=== PATIENT | male | born 1980 | race Caucasian/White ===

== ENCOUNTER 2022-04-10 06:55 | Outpatient (REF) | payer OTHER, SELFPAY ==
[2022-04-10 11:43] LABS: Alanine Aminotransferase 30 U/L (0-40); Anion Gap 12 (12-20); Aspartate Amino Transferase 20 U/L (5-37); Blood Urea Nitrogen 16 mg/dL (9-16); Calcium 9.5 mg/dL (8.4-10.2); Carbon Dioxide 29 mmol/L (22-29); Chloride 103 mmol/L (96-108); Cholesterol 220 mg/dL; Estimated Glomerular Filt Rate > 60; Glucose Fasting 99 mg/dL (60-99); HDL Cholesterol 51 mg/dL; LDL Cholesterol Calculated 151 mg/dl; Potassium 4.6 mmol/L (3.3-5.1); Sodium 139 mmol/L (135-145); Triglycerides 91 mg/dL
== END 2022-04-10 06:56 | disposition home or self-care (01) ==
LOC: HO.HMGCLDS 06:55
PROVIDERS: PCP Internal Medicine; Visit Provider Internal Medicine
DX: Z00.01 Encounter for general adult medical examination with abnormal findings (principal); E78.2 Mixed hyperlipidemia
CPT/HCPCS: 36415; 80048; 80061; 84450; 84460

== ENCOUNTER 2023-04-06 12:13 | Outpatient (AMB) | payer OTHER, SELFPAY ==
--- NOTE | 2023-04-06 13:20 | A.OFFPC_ITS ---
Vital Signs 04/06/23 13:21 04/06/23 13:42 Height 6 ft 1 in Weight 243 lb 2 oz BMI 32.1 BP 142/78 H 120/70 Blood Pressure Location Lt brachial Lt brachial Position Sitting Sitting Pulse 74 Pulse Source Pulse Oximeter Pulse Oximetry (%) 98 Oxygen Delivery Method Room Air Intake Visit Reasons: Annual Physical Intake Note: Pt is here for his Annual PE Allergies naproxen Adverse Reaction (Unknown, Verified 04/06/23 13:40) GI upset Motrin Adverse Reaction (Unknown, Uncoded 04/06/23 13:40) GI upset Medication List - Last Reconciled 04/06/23 by Eugenia Becerra MD No Known Home Meds Tobacco use date assessed: 04/06/23 Dental Screening Dental Screen Date: 04/06/23 Did you have a dental visit in the last 12 months?: Yes Did you have a dental problem in the last 6 months where you did not have access to dental care?: No Was dental information given to patient?: Patient has dentist HPI Annual Physical HPI Details 32-year-old male with hyperlipidemia, he re today for his physical exam. He has been feeling well, except for occasional heartburn symptoms, usually food related... PFSH Medical History Heartburn Right hamstring injury Mixed dyslipidemia Ingrown toenail of right foot Surgical History H/O vasectomy History of arthroscopy of knee Family History Father Diabetes mellitus History of myocardial infarction Hypertension Mother Melanoma Stacy's disease Brother Substance use disorder Maternal Aunt No problems noted. Maternal Uncle Substance use disorder Social History Housing: House Patient Tobacco Use Status: Former Tobacco user Years Smoked: 8 yrs e-Cigarette/Vaping Use: Never Used Second Hand Smoke Exposure: No service: Yes Current occupational status: employed Cognitive needs: No Hearing needs: No Vision needs: Yes Questionnaire PHQ-9 Over the last 2 weeks, how often have you been bothered by any of the following problems? 1. Little interest or pleasure in doing things: not at all 2. Feeling down, depressed, or hopeless: several days 3. Trouble falling or staying asleep, or sleeping too much: not at all 4. Feeling tired or having little energy: several days 5. Poor appetite or overeating: not at all 6. Feeling bad about yourself - or that you are a failure or have let yourself or your family down: not at all 7. Trouble concentrating on things, such as reading the newspaper or watching television: not at all 8. Moving or speaking so slowly that other people could have noticed. Or the opposite - being so fidgety or restless that you have been moving around a lot more than usual: not at all 9. Thoughts that you would be better off or of hurting yourself in some way: not at all Total score: 2 Depression Screening Interpretation: Negative Depression Screening Done: Yes 57033 - PHQ-9 Billing: Yes Source: Developed by Drs. Darron Kapadia, Fariha Hamilton, Landon Boggs and colleagues, with an educational liane from [employer]. Thrive Questionnaire Date Thrive assessed: 04/06/23 I am a: Patient What is your living situation today?: I have a steady place to live Within the past 12 months, did the food you bought not last and you didn't have the money to get more?: Never true Within the past 12 months, did you worry whether your food would run out before you got money to buy more?: Never true Do you have trouble paying for medicines?: No Do you have trouble getting transportation to medical appointments?: No Do you have trouble paying your heating and electricity bill?: No Do you have trouble taking care of your child, family member or friend?: No Do you have trouble with day-to-day activities such as bathing, preparing meals, shopping, managing finances, etc.?: No Are you currently unemployed and looking for a job?: No Are you interested in more education?: Yes AUDIT C Alcohol Use Questionnaire (AUDIT-C) 1. How often do you have a drink containing alcohol?: 2-3 times a week 2. How many drinks containing alcohol do you have on a typical day when you are drinking?: 3 or 4 3. How often do you have six or more drinks on one occasion?: Never Total Score: 4 JOSE ELIAS-7 AMB Questionnaire JOSE ELIAS-7 Date JOSE ELIAS - 7 assessed: 04/06/23 Feeling nervous, anxious, or on edge: 1 = Several days Not being able to stop or control worryin = Not at all Worrying too much about different things: 0 = Not at all Trouble relaxin = Several days Being so restless that it is hard to sit still: 0 = Not at all Becoming easily annoyed or irritable: 1 = Several days Feeling afraid as if something awful might happen: 0 = Not at all Total JOSE ELIAS-7 score (0-4 normal; 5-9 mild; 10-14 moderate; 15-21 severe): 3 Source: Developed by Drs. Darron Kapadia, Fariha Hamilton, Landon Boggs and colleagues, with an educational liane from [employer]. JOSE ELIAS-7 Assessment Billing JOSE ELIAS-7 Assessment Tool: JOSE ELIAS-7 Assessment 03367 Review of Systems Const Denies body aches, Denies fatigue, Denies headache(s), Denies malaise and Denies weakness Eyes Denies change in vision ENT Reports no additional complaints and Denies headache(s) Card Denies chest pain, Denies rapid heart rate, Denies irregular heart rhythm, Denies lightheadedness and Denies dyspnea Resp Denies cough and Denies dyspnea GI Reports as per HPI, Denies abdominal pain, Denies melena, Denies hematochezia and Denies change in bowel habits Reports no additional complaints Musc Reports no additional complaints Skin/Breast Reports system reviewed and no additional complaints, except as documented Neuro Denies headache(s) and Denies weakness Psych Reports no additional complaints Endo Denies fatigue Evans/Lymph Reports no additional complaints Aller/Immun Reports no additional complaints Physical exam (Primary Care) Vital Signs: Last Vital Signs Pulse 74 04/06/23 13:21 BP 120/70 04/06/23 13:42 Pulse Ox 98 04/06/23 13:21 Oxygen Delivery Method Room Air 04/06/23 13:21 BMI result Body Mass Index 32.1 BMI Assessment/Plan discussion: High BMI High, discussed plan: lifestyle, weight reduction, dietary and physical activity Tobacco/Smoking Status: Tobacco use Status Tobacco use date assessed 04/06/23 04/06/23 13:26 Patient Tobacco Use Status Former Tobacco user 12/06/23 13:26 e-Cigarette/Vaping Use Never Used 04/06/23 13:26 PHQ-9: PHQ-9 Score PHQ-9: Total score 2 04/06/23 13:57 Depression Screening Interpretation: Negative Thrive Assessment: Date of Thrive Assessment Date Thrive assessed 04/06/23 04/06/23 13:57 Const General: comfortable and no acute distress Nutritional Appearance: obese Orientation/consciousness: patient oriented x3 Limitations: no limitations HENMT Head: Yes normocephalic and Yes atraumatic Ears: external ears normal, TM's normal bilaterally and EAC's normal General nose exam: Normal external nose present and No nasal discharge present Face and sinus: Yes face symmetric Mouth: Normal oral and palatal mucosa present and moist mucous membranes Eyes General: appearance normal, both eyes and all related structures Neck Neck: Yes full ROM, Yes no lymphadenopathy and Yes supple Thyroid: Thyroid normal Chest Chest palpation & inspection: normal inspection of the chest Resp Effort & Inspection: normal respiratory effort and able to speak in complete sentences Auscultation: clear to auscultation bilaterally Cardio Rate: regular rate Rhythm: regular rhythm Heart sounds: S1 normal heart sound present and S2 normal heart sound present GI Inspection: Yes obesity Palpation (GI): Soft to palpation, nontender, no guarding and no masses Auscultation: normal bowel sounds General: Yes no CVA tenderness Male General Exam: Yes normal external exam Penis: normal penis Back/Spine/Pelvis Back: no CVA tenderness and No back tenderness Thoracic/Lumbar Spine: thoracic and lumbar spine normal to inspection Skin General skin exam: no rashes or lesions noted Neuro General: patient oriented x3, gait normal, tone normal, moves all extremities, Normal light touch and pain sensation, no focal motor deficits and CN's II-XI intact bilaterally Cognition (Neuro): normal cognition Motor exam (neuro): 5/5 motor strength present throughout Extrem General: Yes full ROM, Yes no joint enlargement, Yes no clubbing, cyanosis or ed alison, Yes no calf tenderness and Yes normal gait Psych Appearance: grossly normal and well kempt Mental Status: mental status grossly normal Speech and movement: Normal speech and movement present Affect: normal affect Attitude: cooperative Thought process: Normal thought process present Thought content: Normal thought content present Office Procedures Flu Questionnaire Does the patient have a severe egg allergy?: No Does the patient have severe life threatening allergies?: No Does the patient have a fever or illness today?: No Has the patient ever had Guillain-Hermann Syndrome?: No Has the patient ever had any past reaction to a flu shot?: No Immunizations flu vacc [id number] 6mos up(PF) 60 mcg(15 mcgx4)/0.5 mL IM syringe Performing Provider: Eugenia Becerra MD Performing Location: [facility] Administered by: Harley Bedolla CMA on 04/06/23 13:57 Dose Route Admin Location Dispensed Lot Number Expiration Date NDC Vocational Coordinator 0.5 mL IM Left Deltoid 0.5 mL [id number] 10/30/23 [id number] [email or web address] VIS Given Date VIS Provided VIS Publication Date 04/06/23 Single Vaccine 20 Eligibility Eligibility Date Funding Source Not [facility] Eligible 04/06/23 Private Assessment and Plan Assessment & Plan (1) Annual visit for general adult medical examination with abnormal findings: Code(s): Z00.01 - Encounter for general adult medical examination with abnormal findings Plan: Will check appropriate labs. Recommended dental visit every 6 months and regular eye exams, at least every 2 years. Take adequate calcium in diet and vitamin-D 3 at 2000 IU per cap once a day, in addition to weight-bearing exercises to help maintain good muscle tone and weight control. Instructed to do self testicular exam to check for any mass. Received COVID vaccination in the past, reminded to get his updated COVID booster, flu vaccine given today, Tdap up-to-date (2) Mixed dyslipidemia: Code(s): E78.2 - Mixed hyperlipidemia Plan: Fasting lipid panel ordered today. Stressed importance of adhering to healthy eating habits, regular exercise peer (3) Heartburn: Code(s): R12 - Heartburn Plan: Advised to try taking [id number] Pepcid AC once a day 20 mg per tablet. Advised avoidance of triggers for heartburn Orders: Orders Lipid Panel 04/06/23 E78.2 - Mixed hyperlipidemia, R12 - Heartburn, Z71.89 - Other specified counseling, Z13.220 - Encounter for screening for lipoid disorders, Z13.1 - Encounter for screening for diabetes mellitus Hemoglobin and Hematocrit 04/06/23 E78.2 - Mixed hyperlipidemia, R12 - Heartburn, Z71.89 - Other specified counseling, Z13.220 - Encounter for screening for lipoid disorders, Z13.1 - Encounter for screening for diabetes mellitus Basic Metabolic Panel Fasting 04/06/23 E78.2 - Mixed hyperlipidemia, R12 - Heartburn, Z71.89 - Other specified counseling, Z13.220 - Encounter for scr eening for lipoid disorders, Z13.1 - Encounter for screening for diabetes mellitus Alanine Aminotransferase 04/06/23 E78.2 - Mixed hyperlipidemia, R12 - Heartburn, Z71.89 - Other specified counseling, Z13.220 - Encounter for screening for lipoid disorders, Z13.1 - Encounter for screening for diabetes mellitus Aspartate Amino Transferase 04/06/23 E78.2 - Mixed hyperlipidemia, R12 - Heartburn, Z71.89 - Other specified counseling, Z13.220 - Encounter for screening for lipoid disorders, Z13.1 - Encounter for screening for diabetes mellitus Vitamin D 25-OH Total 04/06/23 E78.2 - Mixed hyperlipidemia, R12 - Heartburn, Z71.89 - Other specified counseling, Z13.220 - Encounter for screening for lipoid disorders, Z13.1 - Encounter for screening for diabetes mellitus Vitamin B12 and Folate 04/06/23 E78.2 - Mixed hyperlipidemia, R12 - Heartburn, Z71.89 - Other specified counseling, Z13.220 - Encounter for screening for lipoid disorders, Z13.1 - Encounter for screening for diabetes mellitus Influenza [id number] Immunization 04/06/23 Z23 - Encounter for immunization Coding Level of Care Code Est Pt Prev Care 40-64y(89572) Diagnoses Annual visit for general adult medical examination with abnormal findings Z00.01 Mixed dyslipidemia E78.2 Heartburn R12 Additional Codes JOSE ELIAS-7 Assessment Billing - JOSE ELIAS-7 Assessment Tool: JOSE ELIAS-7 Assessment [id number] ([id number])
[2023-04-06 13:21] VITALS: BP 142/78; PULSE 74; O2SAT 98; BMI 32.1
[2023-04-06 13:42] VITALS: BP 120/70
== END 2023-04-06 14:03 | disposition home or self-care (01) ==
PROVIDERS: Visit Provider Internal Medicine
DX: Z23 Encounter for immunization (principal)
CPT/HCPCS: 90471; 90686; 99396

== ENCOUNTER 2023-04-06 13:58 | Outpatient (REF) | payer OTHER, SELFPAY ==
[2023-04-06 16:23] LABS: Hematocrit 47.5 % (42.0-52.0); Hemoglobin 16.7 g/dl (14.0-18.0)
[2023-04-06 16:42] LABS: Alanine Aminotransferase 30 U/L (0-40); Anion Gap 12 (12-20); Aspartate Amino Transferase 23 U/L (5-37); Blood Urea Nitrogen 15 mg/dL (9-16); Calcium 9.1 mg/dL (8.4-10.2); Carbon Dioxide 28 mmol/L (22-29); Chloride 104 mmol/L (96-108); Cholesterol 223 mg/dL (<200); Estimated Glomerular Filt Rate > 60; Glucose Fasting 85 mg/dL (60-99); HDL Cholesterol 46 mg/dL (>40); LDL Cholesterol Calculated 155 mg/dL (<100); Potassium 3.7 mmol/L (3.3-5.1); Sodium 140 mmol/L (135-145); Triglycerides 112 mg/dL (<150)
[2023-04-06 16:57] LABS: Vitamin D 25-OH Total 38.6 ng/mL (>30)
[2023-04-06 17:10] LABS: Folate 13.7 ng/mL (> or = 4.0); Vitamin B12 949 pg/mL (200-900)
== END 2023-04-06 13:59 | disposition home or self-care (01) ==
LOC: HO.HMGCLDS 13:58
PROVIDERS: PCP Internal Medicine; Visit Provider Internal Medicine
DX: Z13.1 Encounter for screening for diabetes mellitus (principal); Z13.220 Encounter for screening for lipoid disorders; E78.2 Mixed hyperlipidemia; R12 Heartburn; Z71.89 Other specified counseling
CPT/HCPCS: 36415; 80048; 80061; 82306; 82607; 82746; 84450; 84460; 85014; 85018

== ENCOUNTER 2024-06-23 09:20 | Outpatient (REF) | payer OTHER, SELFPAY ==
[2024-06-23 10:38] LABS: Alanine Aminotransferase 45 U/L (0-40); Aspartate Amino Transferase 26 U/L (5-37); Cholesterol 200 mg/dL (<200); Glucose Fasting 103 mg/dL (60-99); HDL Cholesterol 45 mg/dL (>40); LDL Cholesterol Calculated 144 mg/dL (<100); Triglycerides 56 mg/dL (<150)
[2024-06-23 10:59] LABS: Folate 12.8 ng/mL (> or = 4.0); Vitamin B12 1069 pg/mL (200-900)
== END 2024-06-23 09:21 | disposition home or self-care (01) ==
LOC: HO.LAB 09:20
PROVIDERS: PCP Internal Medicine; Visit Provider Internal Medicine
DX: E78.2 Mixed hyperlipidemia (principal); R79.89 Other specified abnormal findings of blood chemistry; Z13.1 Encounter for screening for diabetes mellitus
CPT/HCPCS: 36415; 80061; 82607; 82746; 82947; 84450; 84460

== ENCOUNTER 2024-06-27 09:27 | Outpatient (AMB) | payer OTHER, SELFPAY ==
--- NOTE | 2024-06-27 09:37 | A.OFFPC_ITS ---
Vital Signs 06/27/24 09:43 06/27/24 09:59 Height 6 ft 1 in Weight 250 lb BMI 33.0 BP 140/90 H 140/90 H Blood Pressure Location Lt brachial Lt brachial Position Sitting Sitting Respiration 15 Pulse 78 Pulse Source Pulse Oximeter Temp 98.3 F Temp Source Oral Pulse Oximetry (%) 98 Oxygen Delivery Method Room Air Intake Visit Reasons: PE Intake Note: Pt is here today for his PE Allergies naproxen Adverse Reaction (Unknown, Verified 06/27/24 09:57) GI upset Motrin Adverse Reaction (Unknown, Uncoded 06/27/24 09:57) GI upset Medication List - Last Reconciled 06/27/24 by Eugenia Becerra MD No Known Home Meds Tobacco use date assessed: 06/27/24 Dental Screening Dental Screen Date: 06/27/24 Did you have a dental visit in the last 12 months?: Yes Did you have a dental problem in the last 6 months where you did not have access to dental care?: No Was dental information given to patient?: Patient has dentist HPI PE HPI Details 44-year-old male with history of hyperli pidemia, alcohol use disorder with elevated liver enzymes, fasting glucose, and hypertension currently not on any medication at present time, here today for physical exam. He has been feeling well, with no complaints at present time. He is a former cigarette smoker, drinks at least 1-2 alcoholic drinks at least 3 times a week , has about 3 cups of coffee daily and takes occasional energy drinks. [facility] Medical History (Updated 06/27/24 @ 10:16 by Eugenia Becerra MD) Advanced directives, counseling/discussion Alcohol use disorder Elevated liver enzymes Essential hypertension Impaired fasting glucose Heartburn Right hamstring injury Mixed dyslipidemia Ingrown toenail of right foot Surgical History H/O vasectomy History of arthroscopy of knee Family History Father Diabetes mellitus History of myocardial infarction Hypertension Mother Melanoma Stacy's disease Brother Substance use disorder Maternal Aunt No problems noted. Maternal Uncle Substance use disorder Social History Housing: House Patient Tobacco Use Status: Former Tobacco user Years Smoked: 8 yrs e-Cigarette/Vaping Use: Never Used Second Hand Smoke Exposure: No service: Yes Current occupational status: employed Cognitive needs: No Hearing needs: No Vision needs: Yes Questionnaire PHQ-9 Over the last 2 weeks, how often have you been bothered by any of the following problems? 1. Little interest or pleasure in doing things: not at all 2. Feeling down, depressed, or hopeless: not at all 3. Trouble falling or staying asleep, or sleeping too much: several days 4. Feeling tired or having little energy: several days 5. Poor appetite or overeating: not at all 6. Feeling bad about yourself - or that you are a failure or have let yourself or your family down: several days 7. Trouble concentrating on things, such as reading the newspaper or watching television: not at all 8. Moving or speaking so slowly that other people could have noticed. Or the opposite - being so fidgety or restless that you have been moving around a lot more than usual: not at all 9. Thoughts that you would be better off or of hurting yourself in some way: not at all Total score: 3 Depression Screening Interpretation: Negative Depression Screening Done: Yes 67196 - PHQ-9 Billing: Yes Source: Developed by Drs. Darron Kapadia, Fariha Hamilton, Landon Boggs and colleagues, with an educational liane from [employer]. Thrive Questionnaire Date Thrive assessed: 06/27/24 I am a: Patient What is your living situation today?: I have a steady place to live Within the past 12 months, did the food you bought not last and you didn't have the money to get more?: Never true Within the past 12 months, did you worry whether your food would run out before you got money to buy more?: Never true Do you have trouble paying for medicines?: No Do you have trouble getting transportation to medical appointments?: No Do you have trouble paying your heating and electricity bill?: No Do you have trouble taking care of your child, family member or friend?: No Do you have trouble with day-to-day activities such as bathing, preparing meals, shopping, managing finances, etc.?: No Are you currently unemployed and looking for a job?: No Are you interested in more education?: Yes Please select the resources that you would like help with: None Currently or been in a relationship where the following occur: No concerns reported THRIVE Score: 0 AUDIT C Alcohol Use Questionnaire (AUDIT-C) 1. How often do you have a drink containing alcohol?: 2-3 times a week 2. How many drinks containing alcohol do you have on a typical day when you are drinking?: 1 or 2 3. How often do you have six or more drinks on one occasion?: Less than monthly Total Score: 4 JOSE ELIAS-7 AMB Questionnaire JOSE ELIAS-7 Date JOSE ELIAS - 7 assessed: 06/27/24 Feeling nervous, anxious, or on edge: 1 = Several days Not being able to stop or control worryin = Several days Worrying too much about different things: 0 = Not at all Trouble relaxin = Several days Being so restless that it is hard to sit still: 1 = Several days Becoming easily annoyed or irritable: 1 = Several days Feeling afraid as if something awful might happen: 0 = Not at all Total JOSE ELIAS-7 score (0-4 normal; 5-9 mild; 10-14 moderate; 15-21 severe): 5 Source: Developed by Drs. Darron Kapadia, Fariha Hamilton, Landon Boggs and colleagues, with an educational liane from [employer]. JOSE ELIAS-7 Assessment Billing JOSE ELIAS-7 Assessment Tool: JOSE ELIAS-7 Assessment 73683 Review of Systems Const Denies body aches, Denies fatigue, Denies headache(s), Denies malaise, Denies weakness and Reports weight gain Eyes Denies change in vision ENT Reports no additional complaints and Denies headache(s) Card Denies chest pain, Denies rapid heart rate, Denies irregular heart rhythm, Denies lightheadedness and Denies dyspnea Resp Denies cough and Denies dyspnea GI Reports as per HPI, Denies abdominal pain, Denies melena, Denies hematochezia, Denies change in bowel habits and Reports heartburn (Occasional, usually with food triggers) Reports no additional complaints Musc Reports no additional complaints Skin/Breast Reports system reviewed and no additional complaints, except as documented Neuro Denies headache(s) and Denies weakness Psych Reports no additional complaints Endo Denies fatigue Evans/Lymph Reports no additional complaints Aller/Immun Reports no additional complaints Physical exam (Primary Care) Vital Signs: Last Vital Signs Temp 98.3 F 06/27/24 09:43 Pulse 78 06/27/24 09:43 Resp 15 06/27/24 09:43 BP 140/90 H 06/27/24 09:59 Pulse Ox 98 06/27/24 09:43 Oxygen Delivery Method Room Air 06/27/24 09:43 BMI result Body Mass Index 33.0 BMI Assessment/Plan discussion: High BMI High, discussed plan: lifestyle, weight reduction, dietary and physical activity Tobacco/Smoking Status: Tobacco use Status Tobacco use date assessed 06/27/24 06/27/24 09:40 Patient Tobacco Use Status Former Tobacco user 06/27/24 09:40 e-Cigarette/Vaping Use Never Used 06/27/24 09:40 PHQ-9: PHQ-9 Score PHQ-9: Total score 3 06/27/24 10:12 Depression Screening Interpretation: Negative Thrive Assessment: Date of Thrive Assessment Date Thrive assessed 06/27/24 06/27/24 09:40 Currently or been in a relationship where the following occur: No concerns reported Advance Care Planning discussion: Completed/Scanned Date of discussion: 06/27/24 Who was present: Patient Forms completed: Health Care Proxy Time spent: 16-45 minutes Actual minutes spent: 2 Const General: comfortable and no acute distress Nutritional Appearance: obese Orientation/consciousness: patient oriented x3 Limitations: no limitations HENMT Head: Yes normocephalic and Yes atraumatic Ears: external ears normal, TM's normal bilaterally and EAC's normal General nose exam: Normal external nose present and No nasal discharge present Face and sinus: Yes face symmetric Mouth: Normal oral and palatal mucosa present and moist mucous membranes Eyes General: appearance normal, both eyes and all related structures Neck Neck: Yes full ROM, Yes no lymphadenopathy and Yes supple Thyroid: Thyroid normal Chest Chest palpation & inspection: normal inspection of the chest Resp Effort & Inspection: normal respiratory effort and able to speak in complete sentences Auscultation: clear to auscultation bilaterally Cardio Rate: regular rate Rhythm: regular rhythm Heart sounds: S1 normal heart sound present and S2 normal heart sound present GI Inspection: Yes obesity Palpation (GI): Soft to palpation, nontender, no guarding and no masses Auscultation: normal bowel sounds General: Yes no CVA tenderness Male General Exam: Yes normal external exam Penis: normal penis Back/Spine/Pelvis Back: no CVA tenderness and No back tenderness Thoracic/Lumbar Spine: thoracic and lumbar spine normal to inspection Skin General skin exam: no rashes or lesions noted Neuro General: patient oriented x3, gait normal, tone normal, moves all extremities, Normal light touch and pain sensation, no focal motor deficits and CN's II-XI intact bilaterally Cognition (Neuro): normal cognition Motor exam (neuro): 5/5 motor strength present throughout Extrem General: Yes full ROM, Yes no joint enlargement, Yes no clubbing, cyanosis or edema, Yes no calf tenderness and Yes normal gait Psych Appearance: grossly normal and well kempt Mental Status: mental status grossly normal Speech and movement: Normal speech and movement present Affect: normal affect Attitude: cooperative Thought process: Normal thought process present Thought content: Normal thought content present Results Reviewed Results Reviewed: Name: Abdoul Tinajero Age/Sex: 44/M : 1980 Unit#: [id number] Attend Dr: Eugenia Becerra MD Re06/23/24 Status: DEP REF Location: [facility] Disch: SPEC : [id number] FUAD: 06/23/24 STATUS: COMP REQ : [id number] RECD: 06/23/[address]: Eugenia Becerra MD COMP: 06/23/24 ENTERED: 06/23/[address]: ORDERED: Glu Fasting, AST, ALT, Lipid Panel Test Result Flag Reference FBS 103 H 60-99 mg/dL A fasting glucose from 100-125 mg/dl is considered impaired (pre-diabetes). AST (GOT) 26 5-37 U/L ALT (GPT) 45 H 0-40 U/L Triglyceride 56 <150 mg/dL Desirable Triglyceride: less than 150 mg/dL Borderline High Triglyceride 150-199 mg/dL High Triglyceride: 200-499 mg/dL Very High Triglyceride: greater than or equal to 5OO mg/dL Cholesterol 200 H <200 mg/dL Desirable Cholesterol: less than 200 mg/dL Borderline High Cholesterol: 200-239 mg/dL High Cholesterol: greater than 239 mg/dL LDL Calculated 144 H <100 mg/dL Desirable LDL: less than 100 mg/dL Near Optimal/Above Optimal LDL: 110-129 mg/dL Borderline High LDL: 130-159 mg/dL High LDL: 160-189 mg/dL Very High LDL: greater than or equal to 190 mg/dL HDL 45 >40 mg/dL Desirable HDL: greater than 40 mg/dL Note: This HDL assay may give artificially low results in patients with liver disease. Coding Level of Care Code Est Pt Prev Care 40-64y(94980) Diagnoses Annual visit for general adult medical examination with abnormal findings Z00.01 Essential hypertension I10 Mixed dyslipidemia E78.2 Heartburn R12 Impaired fasting glucose R73.01 Elevated liver enzymes R74.8 Alcohol use disorder F10.90 Advanced directives, counseling/discussion Z71.89 Additional Codes JOSE ELIAS-7 Assessment Billing - JOSE ELIAS-7 Assessment Tool: JOSE ELIAS-7 Assessment 47743 ([id number]) Vital Signs *Quality* - Advance Care Planning discussion: Completed/Scanned ([id number]) Vital Signs *Quality* - Time spent: 16-45 minutes ([id number]) PHQ-9 - 47635 - PHQ-9 Billing: Yes ([id number]) Assessment & Plan Assessment & Plan (1) Annual visit for general adult medical examination with abnormal findings: Code(s): Z00.01 - Encounter for general adult medical examination with abnormal findings Plan: Fasting lab results reviewed with patient with lipid levels lower than last check, but liver enzyme and fasting blood sugar elevated , with supratherapeutic vitamin B12 supplements. Advised to stop drinking energy drinks, cut back on caffeine intake and alcohol use. Continue regular dental visit every 6 months and regular eye exams, at least every 2 years. Instructed to do self testicular exam check for any mass. Did not have his flu vaccine this year, does not want to get 1, will get it on the next season, did not want to get a COVID booster, up-to-date with Tdap (2) Essential hypertension: Code(s): I10 - Essential (primary) hypertension Category: Medical Plan: Will start on lisinopril 5 mg taken once a day. Reinforced importance of following a low-salt diet, cutting back on alcohol intake and caffeine intake, regular exercise strongly recommended (3) Mixed dyslipidemia: Code(s): E78.2 - Mixed hyperlipidemia Category: Medical Plan: Reviewed recent fasting lipid profile with patient with elevated LDL cholesterol at 144 mg/dL. but triglycerides now within normal limits . Reinforced importance of adherence to low-cholesterol diet and regular exercise, at least 30 minutes 3 to 4 times a week. Advised patient to make healthy food choices, eat more fruits, vegetables, whole grains, wild caught fish and low-fat dairy. Limit amount of meat and fried or fatty food products, as well as processed foods and fast foods. Advised to cut back on alcohol intake and avoid drinking any energy drinks. Follow-up scheduled with repeat fasting lipid panel in 5 months. (4) Heartburn: Code(s): R12 - Heartburn Category: Medical Plan: Advised cutting back on caffeine intake and alcohol intake as well, do not lie down right away after eating. (5) Impaired fasting glucose: Code(s): R73.01 - Impaired fasting glucose Category: Medical Plan: Your previous fasting blood sugars were elevated above 100 mg/dL. Impaired glucose metabolism increases the risk for developing diabetes mellitus type 2, as well as heart attack and stroke later on. Lifestyle changes that promotes weight loss, healthy eating habits, and regular exercise are important, and can prevent the progression to diabetes (6) Elevated liver enzymes: Code(s): R74.8 - Abnormal levels of other serum enzymes Category: Medical Plan: Liver enzymes on recent labs were elevated, advised to cut back or abstain totally from alcohol intake and avoid energy drinks (7) Alcohol use disorder: Code(s): F10.90 - Alcohol use, unspecified, uncomplicated Category: Medical Plan: Strongly advised to cut back and avoid alcohol intake altogether. Liver enzymes are now mildly elevated. (8) Advanced directives, counseling/discussion: Code(s): Z71.89 - Other specified counseling Category: Medical Plan: Initiated the conversation about Advanced Directives. Advanced Directives help patients prepare for current and future decisions about their medical treatment and place of care. Discussed with patient that it is a process where a patients current condition and prognosis are reviewed, their wishes for information regarding their illness are elicited, and likely medical dilemmas are presented and options discussed. Healthcare proxy form completed today. The form can be amended as needed, reviewed yearly and make changes as needed Orders: Orders Hemoglobin A1c 10/30/24 E78.2 - Mixed hyperlipidemia, F10.90 - Alcohol use, unspecified, uncomplicated, I10 - Essential (primary) hypertension, R12 - Heartburn, R73.01 - Impaired fasting glucose, R74.8 - Abnormal levels of other serum enzymes, Z00.01 - Encounter for general adult medical examination with abnormal findings, Z71.89 - Other specified counseling Lipid Panel 10/30/24 E78.2 - Mixed hyperlipidemia, F10.90 - Alcohol use, unspecified, uncomplicated, I10 - Essential (primary) hypertension, R12 - Heartburn, R73.01 - Impaired fasting glucose, R74.8 - Abnormal levels of other serum enzymes, Z00.01 - Encounter for general adult medical examination with abnormal findings, Z71.89 - Other specified counseling Comprehensive [place]. Panel Fast 10/30/24 E78.2 - Mixed hyperlipidemia, F10.90 - Alcohol use, unspecified, uncomplicated, I10 - Essential (primary) hypertension, R12 - Heartburn, R73.01 - Impaired fasting glucose, R74.8 - Abnormal levels of other serum enzymes, Z00.01 - Encounter for general adult medical examination with abnormal findings, Z71.89 - Other specified counseling Vitamin B12 and Folate 10/30/24 E78.2 - Mixed hyperlipidemia, F10.90 - Alcohol use, unspecified, uncomplicated, I10 - Essential (primary) hypertension, R12 - Heartburn, R73.01 - Impaired fasting glucose, R74.8 - Abnormal levels of other serum enzymes, Z00.01 - Encounter for general adult medical examination with abnormal findings, Z71.89 - Other specified counseling Vitamin D 25-OH Total 10/30/24 E78.2 - Mixed hyperlipidemia, F10.90 - Alcohol use, unspecified, uncomplicated, I10 - Essential (primary) hypertension, R12 - Heartburn, R73.01 - Impaired fasting glucose, R74.8 - Abnormal levels of other serum enzymes, Z00.01 - Encounter for general adult medical examination with abnormal findings, Z71.89 - Other specified counseling Medications: New lisinopril 5 mg PO DAILY 30 tabs 2RF
[2024-06-27 09:43] VITALS: BP 140/90; PULSE 78; RESP 15; TEMP 36.8; O2SAT 98; BMI 33.0
[2024-06-27 09:59] VITALS: BP 140/90
== END 2024-06-27 10:15 | disposition home or self-care (01) ==
PROVIDERS: PCP Internal Medicine; Visit Provider Internal Medicine
DX: Z00.01 Encounter for general adult medical examination with abnormal findings (principal); I10 Essential (primary) hypertension; E78.2 Mixed hyperlipidemia; R12 Heartburn; R73.01 Impaired fasting glucose; R74.8 Abnormal levels of other serum enzymes; F10.90 Alcohol use, unspecified, uncomplicated; Z71.89 Other specified counseling; Z00.00 Encounter for general adult medical examination without abnormal findings

== ENCOUNTER → 2024-06-27 09:27 | Outpatient (BNVA) | payer OTHER, SELFPAY | PROVIDERS: PCP Internal Medicine; Visit Provider Internal Medicine | DX: Z00.01 Encounter for general adult medical examination with abnormal findings (principal); I10 Essential (primary) hypertension; E78.2 Mixed hyperlipidemia; R12 Heartburn; R73.01 Impaired fasting glucose; R74.8 Abnormal levels of other serum enzymes; F10.90 Alcohol use, unspecified, uncomplicated; Z71.89 Other specified counseling | CPT/HCPCS: 96127 ==

== ENCOUNTER → 2024-07-12 11:40 | Outpatient (BNVA) | payer OTHER, SELFPAY | PROVIDERS: PCP Internal Medicine ==

== ENCOUNTER 2024-11-17 09:08 | Outpatient (REF) | payer OTHER, SELFPAY ==
[2024-11-17 11:27] LABS: Hemoglobin A1C 140.8005 umol/L; Total Hemoglobin (HGBA1C) 4243.8713 umol/L
[2024-11-17 11:56] LABS: Alanine Aminotransferase 34 U/L (0-40); Albumin Level 4.8 g/dL (3.5-5.0); Alkaline Phosphatase 74 U/L (39-117); Anion Gap 10 (12-20); Aspartate Amino Transferase 30 U/L (5-37); Blood Urea Nitrogen 15 mg/dL (9-16); Calcium 8.8 mg/dL (8.4-10.2); Carbon Dioxide 26 mmol/L (22-29); Chloride 107 mmol/L (96-108); Cholesterol 230 mg/dL (<200); Estimated Glomerular Filt Rate > 60; HDL Cholesterol 43 mg/dL (>40); Potassium 4.3 mmol/L (3.3-5.1); Sodium 139 mmol/L (135-145); Total Protein 7.1 g/dL (6.5-8.0); Triglycerides 132 mg/dL (<150)
[2024-11-17 12:06] LABS: Folate 12.0 ng/mL (> or = 4.0); Vitamin B12 815 pg/mL (200-900)
== END 2024-11-17 09:09 | disposition home or self-care (01) ==
LOC: HO.HMGCLDS 09:08
PROVIDERS: PCP Internal Medicine; Visit Provider Internal Medicine
DX: Z00.01 Encounter for general adult medical examination with abnormal findings (principal); E78.2 Mixed hyperlipidemia; R73.01 Impaired fasting glucose; I10 Essential (primary) hypertension; R74.8 Abnormal levels of other serum enzymes; F10.90 Alcohol use, unspecified, uncomplicated; Z71.89 Other specified counseling; R12 Heartburn
CPT/HCPCS: 36415; 80053; 80061; 82306; 82607; 82746; 83036

== ENCOUNTER 2024-11-19 11:12 | Outpatient (AMB) | payer OTHER, SELFPAY ==
--- OUTSIDE RECORDS SUMMARY | 2024-11-19 12:22 | XMS_ITS | Patient Health Record ---
Author Organization [facility] Address [address] [place] [address] Care Team Providers [employer] Architect Name Role Phone Hernan JAY, Eugenia Victoria Primary Care Provider Un available Black, Susan Unavailable [phone] Reason For Referral No Information Medications Medication SIG (Take, Route, Fr equency, Duration) Notes Start Date End Date Status Lamisil 250 250 MG 1 Tab Oral Daily; Duration: 90 10/04/2011 Active Problems Problem Type SNOMED Code ICD Code Onset Dates Problem Status W/U Status Risk Notes Problem Onychomycosis (264483149) Onychomycosis (110.1) Active confirmed Problem Pain in limb (22675774) Pain in Limb (729.5) Active confirmed Problem Ingrowing nail (448296190) Ingrowing Nail (703.0) Active confirmed Plan Of Treatment Pending Test Test Name Order Date *Liver Function Test (LFT) 10/04/2011 [id number] NAIL, 6 OR MORE 10/04/2011 [id number]-[id number] Plate 10/04/2011 21802- Debride <25 sq cm 10/20/2011 Insurance Providers Payer Name Payer Address Payer Phone Subscriber Number Group Number Insured Name Patient Relationship to Insured Coverage Start Date Coverage End Date [facility] [address] [place] [address] [phone] [id number] Dana Tinajero Spouse - patient is the spouse of the insured 1 Medical (General) History Surgical History Surgery Date(Month/Year) vasectomy 04/1997 knee surgery 08/2003
[2024-11-19 12:40] VITALS: BP 122/78; PULSE 76; RESP 16; TEMP 37.1; O2SAT 98; BMI 32.7
--- NOTE | 2024-11-19 12:40 | MHC.PC.OV ---
Vital Signs 11/19/24 12:40 Height 6 ft 1 in Weight 248 lb BMI 32.7 BP 122/78 Blood Pressure Location Lt brachial Position Sitting Respiration 16 Pulse 76 Pulse Source Pulse Oximeter Temp 98.7 F Temp Source Oral Pulse Oximetry (%) 98 Oxygen Delivery Method Room Air Intake Visit Reasons: 5 months f/up-BP check Allergies naproxen Adverse Reaction (Unknown, Verified 11/19/24 12:43) GI upset Motrin Adverse Reaction (Unknown, Uncoded 11/19/24 12:43) GI upset Medication List - Last Reconciled 11/19/24 by Eugenia Becerra MD lisinopril 5 mg PO DAILY omeprazole 20 mg PO DAILY Tobacco use date assessed: 06/27/24 Dental Screening Dental Screen Date: 06/27/24 HPI 5 months f/up-BP check HPI Details 44-year-old with hypertension presents today for his follow-up. He has been feeling well, compliant with taking his medications, currently on lisinopril 5 mg once a day. Blood pressure has been stable and controlled on current dose. Has no complaints at present time. [facility] Medical History Advanced directives, counseling/discussion Alcohol use disorder Elevated liver enzymes Essential hypertension Impaired fasting glucose Heartburn Right hamstring injury Mixed dyslipidemia Ingrown toenail of right foot Surgical History H/O vasectomy History of arthroscopy of knee Family History Father Diabetes mellitus History of myocardial infarction Hypertension Mother Melanoma Stacy's disease Brother Substance use disorder Maternal Aunt No problems noted. Maternal Uncle Substance use disorder Social History Housing: House Patient Tobacco Use Status: Former Tobacco user Years Smoked: 8 yrs e-Cigarette/Vaping Use: Never Used Second Hand Smoke Exposure: No service: Yes Current occupational status: employed Current occupation: [employer] Cognitive needs: No Hearing needs: No Vision needs: Yes Questionnaire PHQ-9 Over the last 2 weeks, how often have you been bothered by any of the following problems? Depression Screening Interpretation: Negative Depression Screening Done: Yes Source: Developed by Drs. Darron Kapadia, Fariha Hamilton, Landon Boggs and colleagues, with an educational liane from [employer]. Thrive Questionnaire Date Thrive assessed: 06/27/24 I am a: Patient What is your living situation today?: I have a steady place to live Within the past 12 months, did the food you bought not last and you didn't have the money to get more?: Never true Within the past 12 months, did you worry whether your food would run out before you got money to buy more?: Never true Do you have trouble paying for medicines?: No Do you have trouble getting transportation to medical appointments?: No Do you have trouble paying your heating and electricity bill?: No Do you have trouble taking care of your child, family member or friend?: No Do you have trouble with day-to-day activities such as bathing, preparing meals, shopping, managing finances, etc.?: No Are you currently unemployed and looking for a job?: No Are you interested in more education?: Yes Please select the resources that you would like help with: None Currently or been in a relationship where the following occur: No concerns reported THRIVE Score: 0 AUDIT C Alcohol Use Questionnaire (AUDIT-C) 1. How often do you have a drink containing alcohol?: 2-4 times a month 2. How many drinks containing alcohol do you have on a typical day when you are drinking?: 3 or 4 3. How often do you have six or more drinks on one occasion?: Never Total Score: 3 JOSE ELIAS-7 AMB Questionnaire JOSE ELIAS-7 Date JOSE ELIAS - 7 assessed: 06/27/24 Source: Developed by Drs. Darron Kapadia, Landon Ram and colleagues, with an educational liane from [employer]. Review of Systems Const Denies body aches, Denies fatigue and Denies weakness Eyes Denies change in vision ENT Reports no additional complaints Card Denies chest pain, Denies rapid heart rate, Denies irregular heart rhythm, Denies lightheadedness and Denies dyspnea Resp Denies cough and Denies dyspnea GI Denies abdominal pain, Denies melena, Denies hematochezia, Denies change in bowel habits and Reports heartburn (Occasional, usually with food triggers) Reports no additional complaints Musc Reports no additional complaints Skin/Breast Reports system reviewed and no additional complaints, except as documented Neuro Denies weakness Psych Reports no additional complaints Endo Denies fatigue Evans/Lymph Reports no additional complaints Aller/Immun Reports no additional complaints Physical exam (Primary Care) Vital Signs: Last Vital Signs Temp 98.7 F 11/19/24 12:40 Pulse 76 11/19/24 12:40 Resp 16 11/19/24 12:40 BP 122/78 11/19/24 12:40 Pulse Ox 98 11/19/24 12:40 Oxygen Delivery Method Room Air 11/19/24 12:40 BMI result Body Mass Index 32.7 BMI Assessment/Plan discussion: High BMI High, discussed plan: lifestyle, weight reduction, dietary and physical activity Tobacco/Smoking Status: Tobacco use Status Tobacco use date assessed 06/27/24 11/19/24 12:42 Patient Tobacco Use Status Former Tobacco user 11/19/24 12:42 e-Cigarette/Vaping Use Never Used 11/19/24 12:42 Depression Screening Interpretation: Negative Thrive Assessment: Date of Thrive Assessment Date Thrive assessed 06/27/24 11/19/24 12:42 Currently or been in a relationship where the following occur: No concerns reported Const General: comfortable and no acute distress Nutritional Appearance: obese Orientation/consciousness: patient oriented x3 HENMT Head: Yes normocephalic Ears: external ears normal, TM's normal bilaterally and EAC's normal General nose exam: Normal external nose present Face and sinus: Yes face symmetric Mouth: Normal oral and palatal mucosa present and moist mucous membranes Eyes General: appearance normal, both eyes and all related structures Neck Neck: Yes full ROM, Yes no lymphadenopathy and Yes supple Thyroid: Thyroid normal Chest Chest palpation & inspection: normal inspection of the chest Resp Effort & Inspection: normal respiratory effort and able to speak in complete sentences Auscultation: clear to auscultation bilaterally Cardio Rate: regular rate Rhythm: regular rhythm Heart sounds: S1 normal heart sound present and S2 normal heart sound present GI Inspection: Yes obesity Palpation (GI): Soft to palpation, nontender, no guarding and no masses Auscultation: normal bowel sounds General: Yes no CVA tenderness Male General Exam: Yes normal external exam Penis: normal penis Back/Spine/Pelvis Back: no CVA tenderness Thoracic/Lumbar Spine: thoracic and lumbar spine normal to inspection Skin General skin exam: no rashes or lesions noted Neuro General: patient oriented x3, gait normal, tone normal, moves all extremities, Normal light touch and pain sensation, no focal motor deficits and CN's II-XI intact bilaterally Cognition (Neuro): normal cognition Motor exam (neuro): 5/5 motor strength present throughout Extrem General: Yes full ROM, Yes no joint enlargement, Yes no clubbing, cyanosis or edema, Yes no calf tenderness and Yes normal gait Psych Appearance: grossly normal and well kempt Mental Status: mental status grossly normal Speech and movement: Normal speech and movement present Affect: normal affect Attitude: cooperative Thought process: Normal thought process present Thought content: Normal thought content present Results Reviewed Results Reviewed: Laboratory Tests 11/17/24 09:32 Estimat Average Glucose 103 Hemoglobin A1c % 5.2 Name: Abdoul Tinajero Age/Sex: 44/M : 1980 Unit#: [id number] Attend Dr: Eugenia Becerra MD Re11/17/24 Status: DEP REF Location: [facility] Disch: SPEC : [id number] FUAD: 11/17/24 STATUS: COMP REQ : [id number] RECD: 11/17/24-[address]: Eugenia Becerra MD COMP: 11/17/246 ENTERED: 11/17/24-[address]: ORDERED: CMP Fast, Lipid Panel, Vitamin D 25-OH Test Result Flag Reference Sodium 139 135-145 mmol/L Potassium 4.3 3.3-5.1 mmol/L CL 107 96-108 mmol/L CO2 26 22-29 mmol/L Gap 10 L 12-20 BUN 15 9-16 mg/dL Creat 1.19 0.5-1.4 mg/dL eGFR > 60 Chronic Kidney Disease: Estimated GFR < 60 mL/min/1.73m2 Severe Kidney Disease: Estimated GFR < 15 mL/min/1.73m2 FBS 103 H 60-99 mg/dL A fasting glucose from 100-125 mg/dl is considered impaired (pre-diabetes). CA 8.8 8.4-10.2 mg/dL Total Bili 0.9 0.0-1.0 mg/dL AST (GOT) 30 5-37 U/L ALT (GPT) 34 0-40 U/L Protein, Total 7.1 6.5-8.0 g/dL Alb 4.8 3.5-5.0 g/dL Triglyceride 132 <150 mg/dL Desirable Triglyceride: less than 150 mg/dL Borderline High Triglyceride 150-199 mg/dL High Triglyceride: 200-499 mg/dL Very High Triglyceride: greater than or equal to 5OO mg/dL Cholesterol 230 H <200 mg/dL Desirable Cholesterol: less than 200 mg/dL Borderline High Cholesterol: 200-239 mg/dL High Cholesterol: greater than 239 mg/dL LDL Calculated 161 H <100 mg/dL Desirable LDL: less than 100 mg/dL Near Optimal/Above Optimal LDL: 110-129 mg/dL Borderline High LDL: 130-159 mg/dL High LDL: 160-189 mg/dL Very High LDL: greater than or equal to 190 mg/dL HDL 43 >40 mg/dL Desirable HDL: greater than 40 mg/dL Note: This HDL assay may give artificially low results in patients with liver disease. Alk Phos 74 39-117 U/L Vitamin D 25-OH 63.5 >30 ng/mL Health Based Reference Values* < 20 ng/mL Deficient 20-30 ng/mL Insufficient > 30 ng/mL Sufficient Coding Level of Care Code Est Pt Level 4 (03736) Diagnoses Mixed dyslipidemia E78.2 Essential hypertension I10 Assessment & Plan Assessment & Plan (1) Mixed dyslipidemia: Code(s): E78.2 - Mixed hyperlipidemia Category: Medical Plan: Latest fasting lipids showed elevated LDL cholesterol at 161 mg/dL. Goal is less than 100 mg/dL. Patient advised adherence to healthy eating habits, cutting back on high cholesterol diet, avoiding lot of carbs and processed foods and junk food. Continue with regular exercise at least 150 minutes per week of moderate intensity exercise. (2) Essential hypertension: Code(s): I10 - Essential (primary) hypertension Category: Medical Plan: Blood pressure at goal of less than 130/80. Continue with lisinopril 5 mg once a day. Reinforced importance of following a low sodium diet, getting regular exercise, and lowering stress levels. Orders: Orders Lipid Panel 6 Months E78.2 - Mixed hyperlipidemia, I10 - Essential (primary) hypertension
== END 2024-11-19 12:51 | disposition home or self-care (01) ==
LOC: HO.HMCC 11:13
PROVIDERS: PCP Internal Medicine; Visit Provider Internal Medicine
DX: E78.2 Mixed hyperlipidemia (principal); I10 Essential (primary) hypertension